=== PATIENT | male | born 1955 | race Caucasian/White ===

== ENCOUNTER → 2017-06-23 | Outpatient (CLI) | payer OTHER ==
[~2017-06-23] MED LIST: OMEP20TA PO
== END | disposition home or self-care (01) ==
LOC: C.LAB 22:20
DX: Z02.83 Encounter for blood-alcohol and blood-drug test (principal)

== ENCOUNTER 2023-12-11 05:15 | Observation (INO) ==
--- NOTE | 2023-11-26 09:38 | Anesthesiology Consultation ---
Date of Service November 26, 2023 Assessment & Plan (1) Encounter for pre-operative examination: Chart Review Chart Review: Acceptable Risk for Surgery and Patient seen in Pre Admission Testing Pt currently scheduled as 23 hours observation. If surgeon decides to change patient to Same Day Joint, patient would be acceptable risk for TKA, pending patient is motivated, has good support and surgeon's office completes [facility] Program preop requirements. Per PAT appt on 11/26/23, no recent illness/disease exposures, illness related symptoms, or recent illness/disease positive tests. Will leave to surgeon's discretion if preop Covid testing needed Teaching & Discussion Pre-Anesthesia Teaching/Discussion Notes: Instructed NPO after midnight before surgery,except medications with 15 cc of water. Medication instructions provided according to the PAT guidelines. History Surgery Operation Date: 12/11/23 07:00 Proposed Procedures p Left Total Knee Arthroplasty - Wicho Montero MD Height/Weight Height: 6 ft 1 in Weight: 102.3 kg Allergies Allergy/AdvReac Type Severity Reaction Status Date / Time aspirin Allergy Severe rupture of Verified 11/15/23 08:50 duodenum. Medications Home Medications Medication Instructions Recorded Confirmed Last Taken Aluminum Crutches #1 ea 10/04/23 10/04/23 Unknown No Home Medications 11/15/23 Unknown Past Medical History Medical History GERD (gastroesophageal reflux disease) hx - no recent issues History of COVID-19 10/05/23-10/09/23 mild cold symptoms- symptoms fully resolved Exercise / Class Metabolic Activity II 4-5 Yardwork/Stairs/Walk up hill (one flight of stairs - no chest pain or SOB ) Past Family History Family History Other No family history of adverse response to anesthesia Past Surgical History Surgical History H/O knee surgery bilateral History of colonoscopy History of esophagogastroduodenoscopy (EGD) S/P laparotomy for duodenal rupture (2006) S/P left knee arthroscopy S/P right knee arthroscopy Past Anesthesia History No Hx of Anesthesia Complications and No Family Hx of Anesthesia Complications History of PONV No Hx of PONV and No Hx of Motion Sickness Social History Smoking Status: Never smoker Do You Dip or Chew Tobacco: No (quit ~2013) Hx Alcohol Use: No Hx Substance Use: No substance use type: does not use Review of Systems Patient denies chest pain, shortness of breath, dyspnea on exertion, reflux, cough, wheezing, palpitations. No hx of seizures, stroke, PR, apnea/snoring. No hx of blood clots or blood transfusions Physical Exam Vital Signs VITALS BP 110/70 P 64 TEMP 97.8 SP02 97% RESP 16 Constitutional no acute distress ENMT Mouth: no TMJ clicking Thyromental Distance: > or= 3.5 Finger Breadths (4.0) Mallampati Class: I Missing molars [place] to molar Neck neck extension not limited Respiratory normal respiratory effort; no respiratory distress Auscultation: lungs clear to auscultation bilaterally; no wheezes Cardiovascular Rate/Rhythm: regular rate and regular rhythm Heart Sounds: no murmur Vessels: no carotid bruit Musculoskeletal Spine: no pain with cervical ROM Extremities: extremities normal to inspection Psychiatric Orientation: alert Lab Results Anesthesia Preop Results Results Anesthesia Widget: WBC 4.65 K/ul (4.8-10.8) L 11/26/23 Hgb 13.7 g/dl (14.0-18.0) L 11/26/23 Hct 41.3 % (42.0-52.0) L 11/26/23 Plt 188 K/uL (130-400) 11/26/23 Na 140 mmol/L (136-145) 11/26/23 K 3.9 mmol/L (3.5-5.1) 11/26/23 Cl 107 mmol/L (98-107) 11/26/23 CO2 29 mmol/L (21-32) 11/26/23 BUN 12 mg/dl (6-23) 11/26/23 Creat 0.92 mg/dl (0.6-1.4) 11/26/23 Glucose Level 77 mg/dl (70-99(Fasting)) 11/26/23 PT 11.0 Seconds (9.0-12.0) 11/26/23 PTT 29 Seconds (21-31) 11/26/23 INR 1.0 (0.9-1.1) 11/26/23 Blood Type O Positive 11/26/23 Antibody Screen NEGATIVE 11/26/23 Testing Electrocardiogram Date: 11/26/23 Findings: + NSR @ (63bpm) Normal EKG per cardio Chest X-Ray Date: 11/26/23 Findings: + NAD FINDINGS: PA and lateral chest radiographs are obtained. No prior studies are available for comparison at the time of dictation. The cardiomediastinal silhouette is unremarkable. There is mild bibasilar scarring/atelectasis. The lungs and pleural spaces are otherwise clear. There is no pneumothorax. The bony thorax appears intact.
--- NOTE | 2023-12-07 13:10 | History & Physical Report ---
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 He is failed conservative measures. He is ready to have his knee replaced. Plan: Juventino taken to the operating do left total knee replacement but the risks Mente this procedure explained the patient and include but not limited to DVT PE infection neurological and vascular bleeding palm pain limb range of motion this is fairly with symptoms incomplete relief of symptoms need for further surgery in the future excetra. The patient understands and desires to proceed informed consent is obtained. Will likely put some vancomycin in the cement due to his history of 3 previous knee surgeries. He apparently does have some issues with aspirin and GI upset and will continue Xarelto for DVT proph ylaxis for 30 days. He is planning on being discharged to home and will do physical therapy if it for play. History of Present Illness Chief Complaint: . Persistent progressive left knee pain and discomfort. Primary Care Provider: Slick Damico MD . 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 Got a long history of knee problems dating back to a multiple operations in the past. He initially tore his ACL and and had a knee scope by Dr. Diehl. He then had an open meniscectomy performed later and then had an IT band tenodesis done for ACL reconstruction in 1979.No further surgery since then. Has been through extensive conservative treatment which become less successful over time. He had injections which helped him for about a week and that is about it. Pains become more disabling. Avoid activity that is the more it hurts. He swells. He is ready to have his knee fixed. Allergies Allergy/AdvReac Type Severity Reaction Status Date / Time aspirin Allergy Severe rupture of Verified 11/15/23 08:50 duodenum. Home Medications Medication Instructions Recorded Confirmed Type Aluminum Crutches #1 ea 10/04/23 10/04/23 Rx No Home Medications 11/15/23 History Past Med/Surg History Medical History History of COVID-19 10/05/23-10/09/23 mild cold symptoms- symptoms fully resolved GERD (gastroesophageal reflux disease) hx - no recent issues Surgical History History of colonoscopy History of esophagogastroduodenoscopy (EGD) S/P right knee arthroscopy S/P left knee arthroscopy H/O knee surgery bilateral S/P laparotomy for duodenal rupture (2006) Family History Other No family history of adverse response to anesthesia Social History Smoking Status: Never smoker Tobacco Type: Smokeless Tobacco (Dip or Chew) Second Hand Exposure: No; Do You Dip or Chew Tobacco: No (quit ~2013); Hx Alcohol Use: No Hx Substance Use: No Preferred Language: Citizen Of [place] Communication Ability: Effective Punchboard Stuffer Required: No Beliefs That Will Affect Care: None Current Living Situation: Spouse Feels Safe at Home: Yes Assistive Devices: None Review of Systems All systems reviewed & are unremarkable except as noted in HPI & below. Physical Exam . Physical examination is a pleasant healthy middle-age male. Looks me in excellent health. Examination left knee reveal patient ambulates with a little bit of a limp he is got slight varus alignment to his knee. Is got well-healed oblique medial incision. He is got along the lateral incision over his IT band area as well. Small knee effusion. His range of motion is near full extension to 120 degrees of flexion. He is got some laxity to anterior drawer testing. Positive Renee test. No varus or valgus instability. A little bit of a pivot glide. No pain with hip motion. He is neurologically intact. Constitutional WD/WN, vitals as above Neck trachea midline, no thyromegaly Respiratory normal respiratory effort, lungs clear to auscultation Cardiovascular RRR, no murmur, no edema Gastrointestinal (Abdomen) normal bowel sounds, soft, nontender, no hepatosplenomegaly Results & Data Results & Data Laboratory Results . Diagnostic Findings . X-ray of the left knee reviewed. Shows advanced medial compartment arthritis but is got complete loss of medial joint space. He has evidence of the previous IT band tenodesis with 2 tatiana in the tibia. PG Care Time/CCT Total # of Minutes Spent Total Time Spent with Patient: Total time spent is greater than 50% in coordination of care (as documented) at patient's floor/unit and/or counseling patient: Coding Level of Care Code None Diagnoses Left knee DJD M17.12
[~2023-12-11 05:15] MED LIST changes: +ACETAMINOPHEN 500 MG TAB PO SCH; +CeleBREX 200 MG CAP PO SCH; +FAMOTIDINE 20 MG TAB PO SCH; +LR 15ML/HR IV SCH; +LR 60ML/HR IV SCH; +METOCLOPRAMIDE HCL 10 MG TABLET PO SCH; -OMEP20TA PO; +ROPIV 0.5% 246mg, Ketorolac 30mg, EPINEPHrine 0.5mg in NSS INFIL SCH; +Scopolamine 1 MG TDSY TD SCH; +Scopolamine CHECK PATCH PLACEMENT SCH; +TRANEXAMIC ACID 1,000 MG **IV Intra-op IV SCH; +ceFAZolin 2000MG 2,000 MG/15 ML SYR IV SCH; +dexAMETHasone**PF** 10 MG/ML VIAL IV SCH
[2023-12-11] MEDS: dexAMETHasone**PF** 10 MG/ML VIAL IV SCH (05:47)
[2023-12-11] MEDS: ACETAMINOPHEN 500 MG TAB PO SCH ×2 (05:47→15:45)
[2023-12-11] MEDS: CeleBREX 200 MG CAP PO SCH (05:47)
[2023-12-11] MEDS: METOCLOPRAMIDE HCL 10 MG TABLET PO SCH (05:47)
[2023-12-11] MEDS: FAMOTIDINE 20 MG TAB PO SCH (05:47)
[2023-12-11] MEDS: Scopolamine 1 MG TDSY TD SCH (05:48)
[2023-12-11] MEDS: LR 500ML BOLUS, THEN 15ML/HR IV SCH (05:48)
[2023-12-11] MEDS: LR 60ML/HR IV SCH (05:48)
[2023-12-11] MEDS ORDERED: BUPIVACAINE 0.5 % 5 MG/1 ML PF 10ML VIAL ONE (06:18)
[2023-12-11] MEDS ORDERED: ROPIVACAINE 0.5% 5 MG/ML 30 ML VIAL ONE (06:18)
[2023-12-11] MEDS ORDERED: PROPOFOL IV EMULSION 10 MG/ML 100 ML VIAL IV ONE (06:20)
[2023-12-11] MEDS ORDERED: MIDAZOLAM HCL 1 MG/ML 2ML VIAL ONE (06:21)
[2023-12-11] MEDS ORDERED: fentaNYL citrate PF 100 MCG/2 ML VIAL ONE (06:21)
[2023-12-11] MEDS ORDERED: ONDANSETRON INJ 2 MG/ML 2 ML VIAL IV PRN ×2 (06:38→10:19)
[2023-12-11] MEDS ORDERED: fentaNYL citrate PF 100 MCG/2 ML VIAL IV PRN (06:38)
[2023-12-11] MEDS ORDERED: ATROPINE SULFATE 0.1 MG/ML 10ML SYR IV PRN (06:38)
[2023-12-11] MEDS ORDERED: ePHEDrine sulfate 50 MG/ML AMP IV PRN (06:38)
--- NOTE | 2023-12-11 06:50 | History & Physical Bridge Note ---
Date of Service December 11, 2023 History & Physical Bridge Note I have examined the patient, reviewed the History & Physical and in the interval since the performance of the History & Physical I have noted the following changes of clinical significance: no changes noted
[2023-12-11] MEDS: ceFAZolin 2000MG 2,000 MG/15 ML SYR IV SCH ×2 (07:00→15:46)
[2023-12-11] MEDS: ORTHO JOINT ANESTHETIC ONE (07:33)
[2023-12-11] MEDS ORDERED: ONDANSETRON INJ 2 MG/ML 2 ML VIAL ONE (07:39)
[2023-12-11] MEDS ORDERED: ePHEDrine sulfate 50 MG/ML AMP ONE (07:39)
[2023-12-11] MEDS: TRANEXAMIC ACID 1,000 MG **IV Intra-op IV SCH (07:50)
[2023-12-11] MEDS: VANCOMYCIN HCL 1000MG/20ML VIAL ONE (08:00)
[2023-12-11] MEDS: ROPIV 0.5% 246mg, Ketorolac 30mg, EPINEPHrine 0.5mg in NSS INFIL SCH (08:10)
--- NOTE | 2023-12-11 08:50 | Operative Report ---
PG Post Operative Report Pre & Post Diagnosis Operation Date: 12/11/23 07:00 Pre-Op Diagnosis: Left Knee Degenerative Joint Disease Post-Op Diagnosis: Left Knee Degenerative Joint Disease I identified the patient and participated in the time-out.: Yes Procedure Operation Date: 12/11/23 07:00 Actual Procedures p Left Total Knee Arthroplasty(Left) - Wicho Montero MD Surgeon Wicho Montero MD Guide Changer Joe Garcia PA-C Estimated Blood Loss 50 Findings Consistent with Post-Op Diagnosis Operative findings with advanced left knee tricompartment DJD. Extensive grade 4 [id number] disease in all 3 compartments most severe medially. He had a chronic ACL deficiency. 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 He said multiple surgeries on this left knee including 3 total. They had a previous IT band tenodesis in the early 80s. Over time he developed increased pain discomfort in the knee. Is been through extensive conservative treatments became less successful over time. He elected proceed with surgical treatment. Description of Procedure Operative implants consist of: 1 Biomet Vanguard size 72.5 left Po stabilized femoral component. 2. Biomet size 79 tibial tray. 3. 10 mm post stabilized polyethylene insert. 4. 34 x 8 and half all poly patella. The patient was taken to the op room, identified, placed on the operating table in the supine position. All contact areas were appropriately padded. IV antibiotics tried by anesthesia team. A spinal anesthetic and been implemented holding area. A left thigh turn was then placed. The left lower extremity was then prepped and draped in usual sterile fashion. The left leg was elevated and exsanguinated with use of a tourniquet. The tourniquet was placed at 300 mmHg. An anterior approach the left knee was then performed to longitudinal incision centered over the patella. Sharp dissection was got through subcutaneous tissue down the extensor mechanism. Medial parapatellar arthrotomy incision was made. Some subperiosteal dissection was carried out medially. The fat pad was resected from Neath patella tendon. The lateral patellofemoral ligament was released. Patella subluxated laterally knee was flexed. The osteophytes taken off distal femur. The ACL was chronically absent. The PCL was released from the distal femur and the tibia subluxated anteriorly. The external treatment line jig was then placed the interface the tibia and adjusted 14 mm medially. Proximal tibial cut was made to move out a millimeter bone from most deficient aspect medial tibial plateau. Tibia was sized to a size 79. Some osteophytes were taken off medially. Attention drawn the femur. The distal femur examined the sharp drop with intramedullary canal was suction. A left 6 degree valgus cutting guide was placed. Distal femoral cutting block was pinned in place. Distal femoral cut was made take an additional 3 mm of bon e off distal femur. The femur was then sized to a size 72.5. The AP cutting block was pinned parallel to the epicondylar axis which was 5 degrees of external rotation. The anterior cut, anterior chamfer, posterior cut, posterior chamfer cuts were made. The box cutting guide was placed in just slight lateral and the box cut was made. The knee was flexed. The remnants of the medial and lateral menisci were excised. The osteophytes taken off the posterior aspect the femur. A trial femoral component was placed. The tibial tray was pinned Nia external rotation and the drill and stem punch were used to create defect in proximal tibia for the tibial tray. We did not run into the tibial hardware. The knee was then trialed and the 10 mm insert fit most appropriately. Attention drawn the patella. The patella was cleaned of all soft tissue. Patella thickness measured 28 mm in thickness was cut down to 15. It was sized to a size 34 patella. The lug holes were drilled for 34 patella. The lateral osteophytes removed. Patella button was placed. Knee was taken through range of motion patella tracked nicely with no thumbs test. Attention drawn to placing permanent components. All trial components were removed. Bone plug was placed into this femur limit blood loss. A double batch [place]os G cement was mixed. I did add an additional gram of vancomycin due to his history of multiple open surgeries on this knee in the past. Biomet Sidewalkguard size 72.5 left Po stabilized femoral component, a size 79 tibial tray, a 10 mm post stabilized polyethylene insert, and a 34 x 8 a nd half all poly patella then cemented in place. Knee was brought out into full extension until the cement hardened. Final cement check was then performed. The pericapsular tissues were injected with total of 100 cc of orthopedic joint mix. The patient did receive 1 g tranexamic acid. The tourniquet was then let down for final tourniquet time 56 minutes. Hemostasis assured with electrocautery. Extensor Meclomen closed with combination 1 PDS suture #1 Vicryl suture in a [id number]-wj-urmis fashion. Extensor Meclomen checked found to be intact through the subcutaneous tissues then closed with 2 Dexon suture in a buried interrupted fashion skin was closed skin tatiana. Leg was then cleaned and dried a sterile dressing with Xeroform, 4 fours, sterile cast padding, Hamzah bandage were applied. The patient was then transferred to the recovery room in stable condition. Patient tolerated procedure well and there were no complications. Joe Garcia, my physician sales assistants and salespersons, was present for the entire procedure. His assistance was essential and required for appropriate patient positioning, prepping and draping, surgical exposure, performing the technical details of the operation, placement the implants, closure of the wound, and placement of the sterile bandage. I attest to the content of the Intraoperative Record and any orders documented therein. Any exceptions are noted below.
--- NOTE | 2023-12-11 09:14 | XRay Report ---
XR knee LT 1 or 2V routine CLINICAL HISTORY: Surgical Post Op TECHNIQUE: 2 views of the left knee were obtained. Comparison: Comparison is made to knee radiographs 10/04/2023 FINDINGS: Patient is status post total knee arthroplasty with expected postsurgical changes including soft tiss ue swelling and subcutaneous emphysema. No periarticular lucency or hardware fracture is seen. IMPRESSION: Expected postoperative appearance status post placement of total knee arthroplasty. ACT 112: Negative or not required by law. Electronically signed by: Max Hutchison M.D. 12/11/2023 9:12 AM
--- NOTE | 2023-12-11 09:30 | Anesthesiology Progress Note ---
Date of Service December 11, 2023 Anesthesia Post Procedure Vital Signs Vital Signs: Temp Pulse Resp BP Pulse Ox O2 Del Method 12/11/23 09:20 99.1 F 66 12 114/62 95 Room Air 12/11/23 09:10 67 12 113/61 94 Room Air 12/11/23 09:00 57 L 16 115/64 97 Room Air 12/11/23 08:50 65 12 116/66 97 Room Air 12/11/23 08:43 97.5 F L 74 20 113/73 97 Room Air 12/11/23 05:39 98.6 F 63 16 139/65 98 Room Air Transfer of Care Handoff Completed per policy Notes Mental Status: alert / awake / arousable and participated in evaluation Patient Amnestic to Procedure: Yes Nausea / Vomiting: adequately controlled Pain: adequately controlled Airway Patency, RR, SpO2: stable & adequate BP & HR: stable & adequate Hydration State: stable & adequate Neuraxial Anesthesia: was administered and sensory block is resolving Anesthetic Complications: no major complications apparent and Pt Satisfied with anesthetic care
[2023-12-11] MEDS ORDERED: METOCLOPRAMIDE HCL INJ 5 MG/ML 2 ML VIAL IV PRN (10:19)
[2023-12-11] MEDS ORDERED: HYDROmorphone INJ 0.5 MG/0.5 ML SYR IV PRN (10:19)
[2023-12-11] MEDS ORDERED: ALUMINUM/MAGNESIUM SUSP 30 ML UDC PO PRN (10:19)
[2023-12-11] MEDS ORDERED: MAGNESIUM HYDROXIDE SUSP 30 ML UDC PO PRN (10:19)
[2023-12-11] MEDS ORDERED: NALOXONE HCL 0.4 MG/1 ML VIAL/CARP IV PRN (10:19)
[2023-12-11] MEDS ORDERED: bisacodyL 10 MG SUPP PR PRN (10:19)
[2023-12-11] MEDS ORDERED: TAMSULOSIN HCL 0.4 MG CAP PO PRN (10:19)
[2023-12-11] MEDS: SODIUM CHLORIDE 0.9% 1,000 ML IV SCH (10:43)
[2023-12-11] MEDS: DOCUSATE SODIUM 100 MG CAP PO SCH (11:31)
[2023-12-11] MEDS: SENNA 8.6 MG TAB PO SCH (11:31)
[2023-12-11] MEDS: KETOROLAC TROMETHAMINE 15 MG/ML VIAL IV SCH (11:32)
[2023-12-11] MEDS: MULTIVITAMIN TAB PO SCH (11:32)
[2023-12-11] MEDS: Scopolamine CHECK PATCH PLACEMENT SCH (15:47)
[2023-12-11] MEDS: TRANEXAMIC ACID / 0.7% NACL 1,000 MG/100 ML BAG IV SCH (15:47)
[2023-12-11] MEDS: ASCORBIC ACID 500 MG TAB PO SCH (17:51)
[2023-12-11] MEDS ORDERED: SENNA 8.6 MG TAB PO SCH (21:00)
[2023-12-12] MEDS: oxyCODONE HCL IR 5 MG TAB (IMMEDIATE RELEASE) PO PRN (02:38)
[2023-12-12 06:05] LABS: Hematocrit (blood only) 33.6 % (42.0-52.0); Hemoglobin 11.2 g/dl (14.0-18.0); Mean Corpuscular Hgb Conc 33.3 g/dL (32.0-36.0); Mean Corpuscular Volume 90.1 fL (80.0-100.0); Platelet Count 147 K/uL (130-400); RDW Coefficient of Variation 12.9 % (11.5-14.5); Red Blood Count 3.73 M/uL (4.70-6.10); White Blood Count 9.65 K/ul (4.8-10.8)
[2023-12-12 06:21] LABS: BUN Creatinine Ratio 20.7 (10-20); Calcium 8.5 mg/dl (8.6-10.3); Creatinine Clr Calc Pharmacy 99.2 ml/min; Est GFR (African American) 100.1 ml/min; Est GFR (Non-African American) 86.4 ml/min; Potassium 4.3 mmol/L (3.5-5.1)
[2023-12-12] MEDS: RIVAROXABAN 10 MG TABLET PO SCH (08:48)
[2023-12-12] MEDS: dexAMETHasone 10 MG in SYRINGE 0 ML IV SCH (08:49)
--- NOTE | 2023-12-12 09:50 | Orthopedic Progress Note ---
Date of Service December 12, 2023 Assessment & Plan (1) Status post left knee replacement: Overall, he is doing quite well today with good pain control to the left knee. He will work with physical therapy later this morning to work on ambulation and range of motion exercises. He is on Xarelto for DVT prophylaxis. He can be discharged home later this morning pending physical therapy evaluation. He will follow-up in [address] Montero for postoperative management. Dontae Salgado was seen and evaluated at bedside this morning resting comfortably in no apparent distress. He notes that his pain is well-controlled to the left knee. He has been up and out of bed without significant issues. He has yet to work with physical therapy this morning. He denies any other issues today. Review of Systems All systems reviewed & are unremarkable except as noted in HPI & below. Physical Exam . On physical examination of the left knee, dressings are clean, dry, intact. His leg is out in full extension. He has active plantarflexion dorsiflexion of left ankle. +2 DP and PT pulses. Less than 2-second capillary refill. Normal sensation. Neurovascular intact. Results & Data Results & Data Laboratory Results . Diagnostic Findings . Postoperative x-rays of the left knee show prosthesis to be in anatomical alignment with no signs of fracture complication or loosening. PG Care Time/CCT Total # of Minutes Spent Total Time Spent with Patient: Total time spent is greater than 50% in coordination of care (as documented) at patient's floor/unit and/or counseling patient: Coding Level of Care Code 24497 Post Operative Follow-Up Diagnoses Status post left knee replacement Z96.652
--- NOTE | 2023-12-12 09:52 | Discharge Summary ---
Date of Service December 12, 2023 Admission HPI (Per Admitting) . 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 Got a long history of knee problems dating back to a multiple operations in the past. He initially tore his ACL and and had a knee scope by Dr. Diehl. He then had an open meniscectomy performed later and then had an IT band tenodesis done for ACL reconstruction in 1979.No further surgery since then. Has been through extensive conservative treatment which become less successful over time. He had injections which helped him for about a week and that is about it. Pains become more disabling. Avoid activity that is the more it hurts. He swells. He is ready to have his knee fixed. Admission Exam (Per Admitting) . Physical examination is a pleasant healthy middle-age male. Looks me in excellent health. Examination left knee reveal patient ambulates with a little bit of a limp he is got slight varus alignment to his knee. Is got well-healed oblique medial incision. He is got along the lateral incision over his IT band area as well. Small knee effusion. His range of motion is near full extension to 120 degrees of flexion. He is got some laxity to anterior drawer testing. Positive Renee test. No varus or valgus instability. A little bit of a pivot glide. No pain with hip motion. He is neurologically intact. Principal Diagnosis Same as "Discharge Diagnosis" noted below under Discharge Instructions. Discharge Exam . On physical examination of the left knee, dressings are clean, dry, intact. His leg is out in full extension. He has active plantarflexion dorsiflexion of left ankle. +2 DP and PT pulses. Less than 2-second capillary refill. Normal sensation. Neurovascular intact. Discharge Data Procedures Performed Operation Date: 12/11/23 07:00 Actual Procedures p Left Total Knee Arthroplasty(Left) - Wicho Montero MD Ordered Studies 12/11/23 05:00 US - OR guided needle placemen Routine Hospital Course (1) Status post left knee replacement: On December 11, 2023 Damian arrived at [facility] and underwent a left total knee arthroplasty performed by Dr. Montero with no complications. He had a spinal anesthetic. Postoperatively, he was transferred to the PACU for immediate postoperative management and then transferred up to the general orthopedic floor in stable condition. His hospital course was uneventful. On postoperative day #1, his vital signs were stable and his pain was well- controlled. He was started on Xarelto for DVT prophylaxis. He participated well with physical therapy working on ambulation and range of motion exercises. He was then discharged home in stable condition. He will follow-up in [address] Montero for postoperative management PG Care Time/CCT Total # of Minutes Spent Total Time Spent with Patient: Total time spent is greater than 50% in coordination of care (as documented) at patient's floor/unit and/or counseling patient: Discharge Plan Discharge Items Patient Disposition: Home - Self-Care Reason For Visit: Left Knee Degenerative Joint Disease Discharge Diagnosis: Left KNee Replacement Activity: Per Instructions section Weightbearing: Full weightbearing Non-emergency contact: Surgeon Call non-emergency contact if: you have any medication questions Follow-up/Referrals: Slick Damico MD [Primary Care Provider] - Diet: Regular Addtl Attending Provider Instructions: ACTIVITY RECOMMENDATIONS: Physical Therapy: * You will go to physical therapy three times each week for four to six weeks after your surgery in order to regain your knee range of motion and to retrain your knee to work properly. * It is just as important to make sure you are getting your knee perfectly straight as it is to regain your knee bend. * Taking a pain pill an hour before therapy can help you have a more productive and comfortable therapy session. Home Exercise: * You were shown a series of exercises (heel props, heel slides, etc.) in the hospital. Do these exercises three to four times each day including the exercises you were shown in physical therapy. Walking: * Get up and walk several times each day. For the first four weeks, try not to stand or walk for more than one hour at a time. If you do stand or walk for more than one hour, you will not hurt anything, but your knee and leg will likely swell. * As you feel comfortable, you may change from the walker or crutches to a cane and then to independent walking. MEDICATIONS: New Medicine: * You will likely be taking one or more of these medications: 1. Oxycodone - A quick and shorter-acting pain medication. Take one to two tablets every six hours to lessen your pain. 2. Xarelto - Thins your blood to lessen the chance of forming a blood clot. * The most common side effects of pain medicine and iron are nausea and constipation. If nausea or constipation is too much of a problem or if you have any quest ions about your new medicines or doses, call [facility] at [phone]. We will try to help you manage these issues. "VERY IMPORTANT TO READ AND REVIEW" Pain: * The immediate post-operative period after knee replacement surgery is often quite painful. * You are given a prescription for pain medicine. You should take it, as directed, when you need it, especially before physical therapy and before going to bed. Pain that interferes with sleep is very common and can last several months. * You will likely need pain medicine for the first four to six weeks. It will not stop all of the pain. The pain will lessen and as you feel better, you may change to milder pain medicine such as Tylenol. * The most common side effects of pain medicine are nausea and constipation, so don't take more than you need. SPECIAL CARE INSTRUCTIONS: TEDs/Elastic Stockings: * The white elastic stockings help limit swelling and prevent blood clots from forming in your legs. The more you wear them, the more they work. * Wear them for six weeks after knee replacement surgery and four weeks after partial knee replacement. Incision Site Care: * Remove dressing postoperative day 2 and then shower. Keep direct shower pressure off the incision site. * After showering, cover tatiana with dry gauze and change daily or more frequently if the dressing is getting saturated with drainage. * Use the JERAMY stockings to hold dressing in place. DO NOT apply tape on the skin. * May completely stop using bandage if wound is dry and no drainage * Brightwood are removed between 2 and 3 weeks post-op. If your follow-up appointment is made before 2 weeks, please have your appointment re- scheduled. It is too early to remove the tatiana. Prevention of Infection: * Take antibiotics one hour before any dental cleaning, dental work, urological procedure, gastrointestinal procedure or any invasive surgery in order to prevent your new joint from getting infected. * You may get the antibiotics from the doctor performing the procedure or you may call our office at [phone] before and we will call in a prescript ion to the pharmacy of your choice. Things to Watch For: * Drainage from the incision site that occurs more than one week after your surgery. * Severely increased knee/leg pain or swelling. * Increased redness at the incision site. * Fever above 102 degrees Fahrenheit. * Unusual chest pain or shortness of breath. * Unusual pain or burning with urination. Call [facility] at [phone] with any of the above problems or if you have any questions about your medicines or recovery. FOLLOW UP VISIT: Make an appointment to see your doctor for approximately two weeks after surgery for a progress check and staple removal by calling the office at [phone]. Pending Studies at Discharge: No Stand-Alone Forms: My [facility], Smoking Cessation Medications and DC Order Prescriptions: Continued oxycodone 5 mg tablet 5 - 10 mg PO Q6 PRN (Reason: pain) Qty: 40 0RF Rx Instructions: Take as needed for pain ondansetron 4 mg tablet,disintegrating 4 mg PO Q8 PRN (Reason: nausea) Qty: 20 1RF Rx Instructions: Take as needed for nausea sennosides [Senokot] 8.6 mg tablet 8.6 mg PO BID 14 Days Qty: 28 0RF Rx Instructions: Take two times a day to prevent/treat constipation acetaminophen [Tylenol Extra Strength] 500 mg tablet 1,000 mg PO TID 30 Days Qty: 180 0RF Rx Instructions: Take 3 times per day to lessen pain. Xarelto 10 mg tablet 10 mg PO DAILY 30 Days Qty: 30 0RF Rx Instructions: Take 1 tablet daily for 30 days to prevent blood clots tamsulosin [Flomax] 0.4 mg capsule 0.4 mg PO DAILY PRN (Reason: Prevent urinary retention) Qty: 7 0RF Patient Comments: pt did not take night before surgery Rx Instructions: Begin night BEFORE surgery to prevent urinary retention cefadroxil 500 mg capsule 500 mg PO BID 7 Days Qty: 14 0RF Rx Instructions: Take 1 cap twice a day to prevent infection (DME) Aluminum Crutches Misc See Rx Instructions .Route Qty: 1 0RF Rx Instructions: As directed No Home Medications Discharge Orders: Discharge Order (Routine); Ordered 12/12/23 Ordered By: Rob Miguel/Other Patient Handouts: Knee Replace 1st Month, Knee Replace Control Swelling, Knee Replacement Total Dc Admission Data Admit Date/Time: 12/11/23 08:43 Attending Provider: Wicho Montero Admit Provider: Wicho Montero Primary Care Provider: Slick Damico Other Interventions: Discharge Summary Assessment (RN) Last Done: 12/12/23 09:41
== END 2023-12-12 11:59 | disposition home or self-care (01) ==
LOC: ASU 05:15 → 3E 05:15